=== PATIENT | female | born 1975 | race Caucasian/White ===

== ENCOUNTER → 2023-10-26 10:13 | Outpatient (REF) | payer BC, SELFPAY ==
[2023-10-26 13:40] LABS: % Basophils 0.6 % (0-2); % Eosinophils 7.6 % (0-6); % Immature Granulocytes 0.3 % (0-0.5); % Lymphocytes 15.4 % (20.5-51.1); % Monocytes 6.1 % (1.7-9.3); Absolute Eosinophils 0.5 10^3/uL (0-0.7); Absolute Lymphocytes 1.1 10^3/uL (1.2-3.4); Absolute Monocytes 0.4 10^3/uL (0.1-0.6); Absolute Neutrophils 4.9 10^3/uL (1.4-6.5); Hematocrit 38.2 % (37.0-47.0); Hemoglobin 11.5 g/dL (12.0-16.0); Mean Corp Hgb Conc. 30.1 g/dL (33.0-37.0); Mean Corpuscular Hgb 25.8 pg (27.0-31.0); Mean Corpuscular Volume 85.8 fL (81.0-99.0); Mean Platelet Volume 9.8 fL (7.4-10.4); Nucleated Red Blood Cells % 0 %; Platelet Count 295 10^3/uL (130-400); Red Blood Cell Count 4.45 10^6/uL (4.20-5.40); Red Cell Dist. Width 16.5 % (11.5-14.5); White Blood Cell Count 6.9 10^3/uL (4.8-10.8)
[2023-10-26 14:09] LABS: ALT (SGPT) 31 U/L (0-35); AST (SGOT) 33 U/L (14-36); Alkaline Phosphatase 107 U/L (38-126); Blood Urea Nitrogen 18 mg/dl (7-17); Calcium 9.8 mg/dl (8.4-10.2); Carbon Dioxide 25 mmol/L (22-30); Chloride 103 mmol/L (98-107); Glucose 65 mg/dl (70-99); HDL Cholesterol 33 mg/dl; LDL Cholesterol, Calculated 52 mg/dl; Potassium 4.3 mmol/L (3.5-5.1); Sodium 139 mmol/L (135-145); Total Bilirubin 0.6 mg/dl (0.2-1.3); Total Cholesterol 109 mg/dl (50-199); Total Protein 6.3 g/dl (6.3-8.2); Triglyceride 122 mg/dl (10-149); Very Low Density Lipoprotein 24 mg/dl (0-30); eGFR > 60.00
[2023-10-26 14:25] LABS: Free T4 1.16 ng/dl (0.78-2.19)
[2023-10-26 14:31] LABS: Glycohemoglobin (HgbA1c) 6.2 % (4.0-5.6)
[2023-10-26 14:39] LABS: TSH 1.54 uIU/ml (0.47-4.68)
== END ==
LOC: REG 10:13
PROVIDERS: ATTENDING PHYSICIAN Physician Assistant
DX: E11.69 Type 2 diabetes mellitus with other specified complication (principal); E03.9 Hypothyroidism, unspecified
CPT/HCPCS: 36415; 80053; 80061; 83036; 84439; 84443; 85025

== ENCOUNTER → 2023-11-28 14:11 | Outpatient (REF) | payer MEDICARE, OTHER, SELFPAY | LOC: WDC 14:11 | PROVIDERS: ATTENDING PHYSICIAN Physician Assistant Medical | DX: Z12.31 Encounter for screening mammogram for malignant neoplasm of breast (principal) | CPT/HCPCS: 77063; 77067 ==

== ENCOUNTER → 2023-12-06 15:02 | Outpatient (REF) | payer MEDICARE, OTHER, SELFPAY ==
[2023-12-06 15:42] LABS: Urine Albumin 1+ (Neg - Trace); Urine Bilirubin Negative (Negative); Urine Character Very Cloudy (Clear); Urine Color Yellow; Urine Glucose Negative (Negative); Urine Ketone Negative (Negative); Urine Leukocyte 2+ (Negative); Urine Nitrite Positive (Negative); Urine Occult Blood 3+ (Negative); Urine Urobilinogen Negative (Neg - 1+)
[2023-12-06 16:13] LABS: Urine Squamous Cell 0-2 /LPF (Few)
[2023-12-06 16:15] LABS: Urine Bacteria Few (Negative); Urine Calcium Oxalate Crystals Present; Urine White Cell 90-100 /HPF (0-5)
== END ==
LOC: REG 15:02
PROVIDERS: ATTENDING PHYSICIAN Physician Assistant Medical
DX: N30.90 Cystitis, unspecified without hematuria (principal)
CPT/HCPCS: 81003; 81015; 87077; 87086; 87186

== ENCOUNTER → 2024-03-08 10:49 | Outpatient (REF) | payer MEDICARE, OTHER, SELFPAY ==
[2024-03-08 11:29] LABS: % Basophils 0.6 % (0-2); % Eosinophils 3.7 % (0-6); % Immature Granulocytes 0.3 % (0-0.5); % Lymphocytes 17.1 % (20.5-51.1); % Monocytes 5.7 % (1.7-9.3); % Neutrophils 72.6 % (42.2-75.2); Absolute Basophils 0.1 10^3/uL (0-0.2); Absolute Eosinophils 0.3 10^3/uL (0-0.7); Absolute Lymphocytes 1.3 10^3/uL (1.2-3.4); Absolute Monocytes 0.5 10^3/uL (0.1-0.6); Absolute Neutrophils 5.7 10^3/uL (1.4-6.5); Hematocrit 36.5 % (37.0-47.0); Hemoglobin 11.6 g/dL (12.0-16.0); Mean Corp Hgb Conc. 31.8 g/dL (33.0-37.0); Mean Corpuscular Hgb 26.7 pg (27.0-31.0); Mean Corpuscular Volume 84.1 fL (81.0-99.0); Mean Platelet Volume 9.3 fL (7.4-10.4); Nucleated Red Blood Cells % 0 %; Platelet Count 287 10^3/uL (130-400); Red Blood Cell Count 4.34 10^6/uL (4.20-5.40); Red Cell Dist. Width 15.2 % (11.5-14.5); White Blood Cell Count 7.8 10^3/uL (4.8-10.8)
[2024-03-08 12:04] LABS: ALT (SGPT) 20 U/L (0-35); AST (SGOT) 25 U/L (14-36); Albumin 3.9 g/dl (3.5-5.0); Alkaline Phosphatase 116 U/L (38-126); Blood Urea Nitrogen 18 mg/dl (7-17); Calcium 9.5 mg/dl (8.4-10.2); Carbon Dioxide 20 mmol/L (22-30); Chloride 107 mmol/L (98-107); Glucose 111 mg/dl (70-99); Potassium 4.2 mmol/L (3.5-5.1); Sodium 139 mmol/L (135-145); Total Bilirubin 0.4 mg/dl (0.2-1.3); Total Protein 6.3 g/dl (6.3-8.2); eGFR > 60.00
[2024-03-08 12:22] LABS: Free T4 0.93 ng/dl (0.78-2.19)
[2024-03-08 12:26] LABS: Protein/creatinine Ratio 0.4; Urine Protein 26 mg/dl
[2024-03-08 12:28] LABS: Microalbumin/creatinine Ratio 113.5 mg/g
[2024-03-08 12:35] LABS: TSH 3.31 uIU/ml (0.47-4.68)
[2024-03-08 13:15] LABS: Glycohemoglobin (HgbA1c) 6.3 % (4.0-5.6)
== END ==
LOC: REG 10:49
PROVIDERS: ATTENDING PHYSICIAN Physician Assistant; FAMILY PHYSICIAN Physician Assistant Medical
DX: E11.69 Type 2 diabetes mellitus with other specified complication (principal); E03.9 Hypothyroidism, unspecified; R80.9 Proteinuria, unspecified
CPT/HCPCS: 36415; 80053; 82043; 82570; 83036; 84156; 84439; 84443; 85025

== ENCOUNTER → 2024-07-20 11:25 | Outpatient (REF) | payer MEDICARE, OTHER, SELFPAY ==
[2024-07-20 12:08] LABS: % Basophils 0.6 % (0-2); % Eosinophils 3.2 % (0-6); % Immature Granulocytes 0.4 % (0-0.5); % Lymphocytes 15.5 % (20.5-51.1); % Monocytes 4.6 % (1.7-9.3); % Neutrophils 75.7 % (42.2-75.2); Absolute Basophils 0.1 10^3/uL (0-0.2); Absolute Eosinophils 0.3 10^3/uL (0-0.7); Absolute Lymphocytes 1.2 10^3/uL (1.2-3.4); Absolute Monocytes 0.4 10^3/uL (0.1-0.6); Hematocrit 38.4 % (37.0-47.0); Hemoglobin 11.8 g/dL (12.0-16.0); Mean Corp Hgb Conc. 30.7 g/dL (33.0-37.0); Mean Corpuscular Hgb 24.6 pg (27.0-31.0); Mean Platelet Volume 9.1 fL (7.4-10.4); Nucleated Red Blood Cells % 0 %; Platelet Count 374 10^3/uL (130-400); Red Cell Dist. Width 17.2 % (11.5-14.5); White Blood Cell Count 7.9 10^3/uL (4.8-10.8)
[2024-07-20 12:41] LABS: Glycohemoglobin (HgbA1c) 6.4 % (4.0-5.6)
[2024-07-20 13:44] LABS: Protein/creatinine Ratio 0.8; Urine Protein 112 mg/dl
[2024-07-20 14:17] LABS: Free T4 0.71 ng/dl (0.78-2.19)
[2024-07-20 14:36] LABS: Microalbumin, Random Urine 34.4 mg/dl (0.6-1.7); Microalbumin/creatinine Ratio 237.7 mg/g
[2024-07-20 16:40] LABS: ALT (SGPT) 19 U/L (0-35); AST (SGOT) 22 U/L (14-36); Albumin 4.4 g/dl (3.5-5.0); Alkaline Phosphatase 119 U/L (38-126); Blood Urea Nitrogen 14 mg/dl (7-17); Calcium 9.7 mg/dl (8.4-10.2); Carbon Dioxide 15 mmol/L (22-30); Chloride 106 mmol/L (98-107); Glucose 164 mg/dl (70-99); HDL Cholesterol 41 mg/dl; LDL Cholesterol, Calculated 50 mg/dl; Potassium 3.8 mmol/L (3.5-5.1); Sodium 138 mmol/L (135-145); Total Bilirubin 0.5 mg/dl (0.2-1.3); Total Cholesterol 120 mg/dl (50-199); Total Protein 6.9 g/dl (6.3-8.2); Triglyceride 149 mg/dl (10-149); Very Low Density Lipoprotein 29 mg/dl (0-30); eGFR 50.72
== END ==
LOC: REG 11:25
PROVIDERS: ATTENDING PHYSICIAN Physician Assistant; FAMILY PHYSICIAN Physician Assistant Medical
DX: E11.69 Type 2 diabetes mellitus with other specified complication (principal); E03.9 Hypothyroidism, unspecified; R80.9 Proteinuria, unspecified
CPT/HCPCS: 36415; 80053; 80061; 82043; 82570; 83036; 84156; 84439; 84443; 85025

== ENCOUNTER → 2024-09-27 12:57 | Outpatient (REF) | payer MEDICARE, OTHER, SELFPAY ==
[2024-09-27 15:03] LABS: Free T4 1.56 ng/dl (0.78-2.19)
[2024-09-27 15:17] LABS: TSH 0.45 uIU/ml (0.47-4.68)
== END ==
LOC: REG 12:57
PROVIDERS: ATTENDING PHYSICIAN Physician Assistant; FAMILY PHYSICIAN Physician Assistant Medical
DX: E03.9 Hypothyroidism, unspecified (principal)
CPT/HCPCS: 36415; 84439; 84443

== ENCOUNTER → 2024-11-07 10:28 | Outpatient (REF) | payer MEDICARE, OTHER, SELFPAY ==
[2024-11-07 11:06] LABS: % Basophils 0.6 % (0-2); % Eosinophils 4.5 % (0-6); % Immature Granulocytes 0.3 % (0-0.5); % Monocytes 6.2 % (1.7-9.3); % Neutrophils 74.4 % (42.2-75.2); Absolute Basophils 0.1 10^3/uL (0-0.2); Absolute Eosinophils 0.4 10^3/uL (0-0.7); Absolute Lymphocytes 1.1 10^3/uL (1.2-3.4); Absolute Monocytes 0.5 10^3/uL (0.1-0.6); Absolute Neutrophils 5.9 10^3/uL (1.4-6.5); Hematocrit 36.8 % (37.0-47.0); Hemoglobin 11.4 g/dL (12.0-16.0); Mean Corpuscular Hgb 25.2 pg (27.0-31.0); Mean Corpuscular Volume 81.2 fL (81.0-99.0); Nucleated Red Blood Cells % 0 %; Platelet Count 303 10^3/uL (130-400); Red Blood Cell Count 4.53 10^6/uL (4.20-5.40); White Blood Cell Count 7.9 10^3/uL (4.8-10.8)
[2024-11-07 12:01] LABS: ALT (SGPT) 21 U/L (0-35); AST (SGOT) 24 U/L (14-36); Albumin 3.9 g/dl (3.5-5.0); Alkaline Phosphatase 112 U/L (38-126); Blood Urea Nitrogen 16 mg/dl (7-17); Calcium 9.2 mg/dl (8.4-10.2); Carbon Dioxide 22 mmol/L (22-30); Chloride 107 mmol/L (98-107); Glucose 124 mg/dl (70-99); HDL Cholesterol 41 mg/dl; LDL Cholesterol, Calculated 81 mg/dl; Potassium 4.3 mmol/L (3.5-5.1); Sodium 139 mmol/L (135-145); Total Bilirubin 0.5 mg/dl (0.2-1.3); Total Cholesterol 139 mg/dl (50-199); Total Protein 6.3 g/dl (6.3-8.2); Triglyceride 88 mg/dl (10-149); Very Low Density Lipoprotein 17 mg/dl (0-30); eGFR > 60.00
[2024-11-07 12:10] LABS: Free T4 0.92 ng/dl (0.78-2.19)
[2024-11-07 12:24] LABS: TSH 5.17 uIU/ml (0.47-4.68)
[2024-11-07 12:26] LABS: Glycohemoglobin (HgbA1c) 6.5 % (4.0-5.6)
== END ==
LOC: REG 10:28
PROVIDERS: ATTENDING PHYSICIAN Physician Assistant; FAMILY PHYSICIAN Physician Assistant Medical
DX: E11.69 Type 2 diabetes mellitus with other specified complication (principal); E03.9 Hypothyroidism, unspecified
CPT/HCPCS: 36415; 80053; 80061; 83036; 84439; 84443; 85025

== ENCOUNTER → 2025-02-05 10:17 | Outpatient (REF) | payer MEDICARE, OTHER, SELFPAY ==
[2025-02-05 11:18] LABS: Hematocrit 37.3 % (37.0-47.0); Hemoglobin 11.2 g/dL (12.0-16.0); Mean Corp Hgb Conc. 30.0 g/dL (33.0-37.0); Mean Corpuscular Volume 81.6 fL (81.0-99.0); Nucleated Red Blood Cells % 0 %; Platelet Count 307 10^3/uL (130-400); Red Cell Dist. Width 16.4 % (11.5-14.5)
[2025-02-05 12:00] LABS: ALT (SGPT) 22 U/L (0-35); AST (SGOT) 24 U/L (14-36); Albumin 4.0 g/dl (3.5-5.0); Alkaline Phosphatase 108 U/L (38-126); Blood Urea Nitrogen 17 mg/dl (7-17); Calcium 9.5 mg/dl (8.4-10.2); Carbon Dioxide 24 mmol/L (22-30); Chloride 105 mmol/L (98-107); Glucose 128 mg/dl (70-99); HDL Cholesterol 38 mg/dl; LDL Cholesterol, Calculated 65 mg/dl; Potassium 4.5 mmol/L (3.5-5.1); Sodium 139 mmol/L (135-145); Total Protein 6.4 g/dl (6.3-8.2); Very Low Density Lipoprotein 23 mg/dl (0-30); eGFR > 60.00
[2025-02-05 12:02] LABS: Glycohemoglobin (HgbA1c) 6.5 % (4.0-5.6)
[2025-02-05 12:27] LABS: TSH 0.89 uIU/ml (0.47-4.68)
== END ==
LOC: REG 10:17
PROVIDERS: ATTENDING PHYSICIAN Physician Assistant
DX: E11.69 Type 2 diabetes mellitus with other specified complication (principal); E03.9 Hypothyroidism, unspecified
CPT/HCPCS: 36415; 80053; 80061; 83036; 84439; 84443; 85025

== ENCOUNTER → 2025-04-10 12:37 | Outpatient (REF) | payer MEDICARE, OTHER, SELFPAY | LOC: HWRCS 12:37 | PROVIDERS: ATTENDING PHYSICIAN Physician Assistant Medical | DX: R06.00 Dyspnea, unspecified (principal); E11.65 Type 2 diabetes mellitus with hyperglycemia; E78.2 Mixed hyperlipidemia; I10 Essential (primary) hypertension; R94.31 Abnormal electrocardiogram [ECG] [EKG] | CPT/HCPCS: 93306 ==

== ENCOUNTER 2025-04-12 19:48 | Inpatient (IN) | payer MEDICARE, OTHER, SELFPAY ==
[2025-04-12] VITALS (8 sets, daily range): BP systolic 97–147; BP diastolic 42–68; BMI 50.9; BMI 50.4
[2025-04-12 12:46] LABS: Hematocrit 25.2 % (37.0-47.0); Hemoglobin 7.6 g/dL (12.0-16.0); Mean Corp Hgb Conc. 30.2 g/dL (33.0-37.0); Mean Corpuscular Volume 76.6 fL (81.0-99.0); Nucleated Red Blood Cells % 0 %; Red Cell Dist. Width 17.0 % (11.5-14.5)
[2025-04-12 12:48] LABS: ALT (SGPT) 16 U/L (0-35); AST (SGOT) 25 U/L (14-36); Albumin 3.7 g/dl (3.5-5.0); Alkaline Phosphatase 94 U/L (38-126); Blood Urea Nitrogen 16 mg/dl (7-17); Calcium 8.8 mg/dl (8.4-10.2); Carbon Dioxide 15 mmol/L (22-30); Chloride 110 mmol/L (98-107); Glucose 183 mg/dl (70-99); Potassium 4.2 mmol/L (3.5-5.1); Sodium 136 mmol/L (135-145); Total Protein 6.2 g/dl (6.3-8.2); eGFR > 60.00
--- NOTE | 2025-04-12 16:01 | ED.GENMED ---
History of Present Illness
<Vickie Saleem, APPLICATION PROJECT LEADER - Last Filed: 04/12/25 19:35>
General
Chief Complaint: Abnormal Lab Value
Source: patient
Exam Limitations: none
Time Seen by Provider: 04/12/25 15:41
Nursing documentation reviewed up to this point in time: agreed with
History of Present Illness
History of Present Illness:
49-year-old female with history of morbid obesity, anxiety, bipolar disorder, cholecystectomy, D&C for hyperplasia in 2004, hypothyroid, IDDM, asthma, presents for abnormal vaginal bleeding. She states she was started on control medication 3
weeks ago for 'binge eating and mood disorder.' Her periods have been irregular historically and states her LMP was 'a couple months ago' and she is on control to 'help me through menopause.'
She started with vaginal bleeding and clots 10 days ago, has been using 3-4 pads a day. Has used one pad so far today. Denies abdominal pain/cramping. Has felt 'a little short of breath.' Denies CP. Denies lightheadedness. No change in color of
stools. Denies UTI symptoms.
Past History
<Vickie Saleme, APPLICATION PROJECT LEADER - Last Filed: 04/12/25 19:35>
Past History
ED Past Medical History: Asthma, NIDDM, Hypothyroidism and Psychiatric (bipolar disorder with depression and suicide attempts.)
ED Past Surgical History: Cholecystectomy and Orthopedic (bilateral knee replacement, Bilateral Carpal tunnel)
Patient has exhibited threatening behavior?: No
Social History
Tobacco: Non-smoker
Alcohol: None
Drug: None
Personal: Single
Living: alone
Employment: Disabled
Review of Systems
<Vickie Saleem, APPLICATION PROJECT LEADER - Last Filed: 04/12/25 19:35>
Review of Systems
Allergies reviewed?: Yes
All Other Systems: ROS reviewed and negative except as documented in HPI and ROS
Constitutional: Denies fever
Respiratory: Denies trouble breathing
Cardiac: Denies chest pain
ABD/GI: Denies abdominal pain, nausea, vomiting, diarrhea or anorexia
: Denies dysuria
Musculoskeletal: Reports no symptoms
Skin: Reports no symptoms
Neurological: Denies dizzy, headache or weakness
Phy Exam
<Vickie Saleem, APPLICATION PROJECT LEADER - Last Filed: 04/12/25 19:35>
Physical Exam
Physical Exam:
GENERAL: No acute distress. A&Ox3.
CONSTITUTIONAL: Afebrile.
EYES: clear, conjunctivae normal
ENMT: moist mucus membranes, Pharynx nl
RESPIRATORY: Regular respirations, nonlabored, lungs clear.
CARDIOVASCULAR: Regular rate and rhythm, no murmurs, no rubs.
GI: Soft, morbidly obese, Nontender, normal BS
:
MUSCULOSKELETAL: Moves with ease. Well perfused.
SKIN: Warm, dry, pink
PSYCH: Normal mood and affect. Well kept, interactive and appropriate
NEUROLOGIC: Awake, alert and oriented. No focal neurological deficits
Course
<Vickie Saleem, APPLICATION PROJECT LEADER - Last Filed: 04/12/25 19:35>
Orders/Labs/Results
Orders:
Orders
04/12/25 12:21
Type And Crossmatch [Type+Screen] Urgent
Complete Blood Count/With Diff Urgent
Comprehensive Metabolic Panel Urgent
04/12/25 16:03
US Pelvis W Transvag Combined Urgent
Comment:
Reason For Exam: Abnormal vaginal bleeding with clots
04/12/25 16:21
PTT Urgent
04/12/25 16:25
Test Result ONCE
04/12/25 16:26
HCG, Serum Qualitative Screen Stat
04/12/25 18:45
* Blood Bank Products Urgent
Blood Bank Products: *Packed RBC Leuko(PRBC's)
Quantity: 1
Transfuse Today: Yes
Reason: Bleeding
IV Insert/Care/Rem.- Treatment PRN
04/12/25 18:58
Admit/Transfer Patient As Directed
Co-Sign Provider:
Level of Care: Inpatient admission
Assign to:: Medical/Surgical
Physician / Group: aidee romo
Diagnosis: fundal firbroid
Reason for Hospitalization: fundal fibroid
Expected length of stay greater than two midnights?: Yes
ELOS- Estimated Length of Stay in days: 3
I certify the patient meets the requirements for IP care: Yes
PRN Pain Medication Management As Directed
May give lesser potent ordered pain med per pt: Yes
preference::
Protocol:: Medication orders for pain may be administered in a
manner that supports deferring to patient preference
when the pt is:
- Requesting an ordered lesser potent pain medication.
Least to most potent pain medications are defined
as: acetaminophen < NSAID < tramadol < opioids
(morphine, oxycodone, hydromorphone).
- Requesting a lesser dose of the same medication IF
ORDERED.
- Requesting a less intrusive route of administration
if both routes are prescribed by the provider (PO <
IV).
04/12/25 19:00
Code Status As Directed
Resuscitation Status: Full Code
Abnormal Lab Results
04/12/25
12:21
RBC 3.29 L 10^6/uL
(4.20-5.40)
Hgb 7.6 L g/dL
(12.0-16.0)
Hct 25.2 L %
(37.0-47.0)
MCV 76.6 L fL
(81.0-99.0)
MCH 23.1 L pg
(27.0-31.0)
MCHC 30.2 L g/dL
(33.0-37.0)
RDW 17.0 H %
(11.5-14.5)
Absolute Lymphs (auto) 1.1 L 10^3/uL
(1.2-3.4)
Lymphocytes % 16.5 L %
(20.5-51.1)
Chloride 110 H mmol/L
(98-107)
Carbon Dioxide 15 L mmol/L
(22-30)
Creatinine 1.1 H mg/dL
(0.6-1.0)
Glucose 183 H mg/dl
(70-99)
Total Protein 6.2 L g/dl
(6.3-8.2)
Crossmatch IS Only See Detail
04/12/25 12:21
04/12/25 12:21
Vital Signs
Initial and Last Documented VS:
Initial Vital Signs
Temp Pulse Resp BP Pulse Ox
98.0 F 71 18 135/56 99
04/12/25 12:11 04/12/25 12:11 04/12/25 12:11 04/12/25 12:11 04/12/25 12:11
Last Documented Vital Signs
Temp Pulse Resp BP Pulse Ox
98.0 F 61 13 134/52 100
04/12/25 16:03 04/12/25 18:15 04/12/25 18:15 04/12/25 17:00 04/12/25 18:15
<Naima Adair MD - Last Filed: 04/12/25 19:33>
Orders/Labs/Results
Orders:
Orders
04/12/25 12:21
Type And Crossmatch [Type+Screen] Urgent
Complete Blood Count/With Diff Urgent
Comprehensive Metabolic Panel Urgent
04/12/25 16:03
US Pelvis W Transvag Combined Urgent
Comment:
Reason For Exam: Abnormal vaginal bleeding with clots
04/12/25 16:21
PTT Urgent
04/12/25 16:25
Test Result ONCE
04/12/25 16:26
HCG, Serum Qualitative Screen Stat
04/12/25 18:45
* Blood Bank Products Urgent
Blood Bank Products: *Packed RBC Leuko(PRBC's)
Quantity: 1
Transfuse Today: Yes
Reason: Bleeding
IV Insert/Care/Rem.- Treatment PRN
04/12/25 18:58
Admit/Transfer Patient As Directed
Co-Sign Provider:
Level of Care: Inpatient admission
Assign to:: Medical/Surgical
Physician / Group: aidee romo
Diagnosis: fundal firbroid
Reason for Hospitalization: fundal fibroid
Expected length of stay greater than two midnights?: Yes
ELOS- Estimated Length of Stay in days: 3
I certify the patient meets the requirements for IP care: Yes
PRN Pain Medication Management As Directed
May give lesser potent ordered pain med per pt: Yes
preference::
Protocol:: Medication orders for pain may be administered in a
manner that supports deferring to patient preference
when the pt is:
- Requesting an ordered lesser potent pain medication.
Least to most potent pain medications are defined
as: acetaminophen < NSAID < tramadol < opioids
(morphine, oxycodone, hydromorphone).
- Requesting a lesser dose of the same medication IF
ORDERED.
- Requesting a less intrusive route of administration
if both routes are prescribed by the provider (PO <
IV).
04/12/25 19:00
Code Status As Directed
Resuscitation Status: Full Code
Abnormal Lab Results
04/12/25
12:21
RBC 3.29 L 10^6/uL
(4.20-5.40)
Hgb 7.6 L g/dL
(12.0-16.0)
Hct 25.2 L %
(37.0-47.0)
MCV 76.6 L fL
(81.0-99.0)
MCH 23.1 L pg
(27.0-31.0)
MCHC 30.2 L g/dL
(33.0-37.0)
RDW 17.0 H %
(11.5-14.5)
Absolute Lymphs (auto) 1.1 L 10^3/uL
(1.2-3.4)
Lymphocytes % 16.5 L %
(20.5-51.1)
Chloride 110 H mmol/L
(98-107)
Carbon Dioxide 15 L mmol/L
(22-30)
Creatinine 1.1 H mg/dL
(0.6-1.0)
Glucose 183 H mg/dl
(70-99)
Total Protein 6.2 L g/dl
(6.3-8.2)
Crossmatch IS Only See Detail
04/12/25 12:21
04/12/25 12:21
Vital Signs
Initial and Last Documented VS:
Initial Vital Signs
Temp Pulse Resp BP Pulse Ox
98.0 F 71 18 135/56 99
04/12/25 12:11 04/12/25 12:11 04/12/25 12:11 04/12/25 12:11 04/12/25 12:11
Last Documented Vital Signs
Temp Pulse Resp BP Pulse Ox
98.0 F 61 13 134/52 100
04/12/25 16:03 04/12/25 18:15 04/12/25 18:15 04/12/25 17:00 04/12/25 18:15
<Vickie V. Day, APPLICATION PROJECT LEADER - Last Filed: 04/12/25 19:35>
MDM/Problems Addressed
Differential Diagnosis Includes:
uterine fibroid
MDM/Problems Addressed:
49-year-old female with history of morbid obesity, anxiety, bipolar disorder, cholecystectomy, D&C for hyperplasia in 2004, hypothyroid, IDDM, asthma, presents for abnormal vaginal bleeding. She states she was started on control medication 3
weeks ago for 'binge eating and mood disorder.' Her periods have been irregular historically and states her LMP was 'a couple months ago' and she is on control to 'help me through menopause.'
She started with vaginal bleeding and clots 10 days ago, has been using 3-4 pads a day. Has used one pad so far today. Denies abdominal pain/cramping. Has felt 'a little short of breath.' Denies CP. Denies lightheadedness. No change in color of
stools. Denies UTI symptoms.
CBC: Hemoglobin 7.6 indices indicating a chronic element but her last hemoglobin on 02/05/2025 was 11.2
CMP: Bicarb 15 (Metformin?) Otherwise unremarkable
6:30 p.m.
Pt has used one pad since arrival.
Plan: Admit: Acute blood loss anemia, 1 unit packed red blood cells ordered
Hospitalist and INTERNET MARKETING ANALYST notified
Stable.
<Vickie Saleem, APPLICATION PROJECT LEADER - Last Filed: 04/12/25 19:35>
*Pulse Oximetry
SaO2: 99
Oxygen Mode of Delivery: Room air
Patient hypoxic: no
*Critical Care Note
Total Time (30-74mins, 75-104mins- exclusive of procedures): Not Applicable
ED Attending Note
<Vickie Saleem, APPLICATION PROJECT LEADER - Last Filed: 04/12/25 19:35>
-
Portions of this chart may have been created with voice recognition software.� Occasional wrong word or��sound alike� substitutions may have occurred due to the inherent limitations of voice recognition software.
<Naima Adair MD - Last Filed: 04/12/25 19:33>
ED Attending Note
Patient seen and examined by attending physician: Yes
I performed the substantive portion of visit, reviewed & personally made and approve the management plan that is documented in note by myself or ELLIOT.: Yes
ED Attending Note:
Patient appears well and stable. She is breathing comfortably. Abdomen is soft and nontender. Patient be admitted for symptomatic blood loss anemia.
Discharge Plan
Departure
Patient Disposition: Admit
Date of Disposition: 04/12/25
Time of Disposition: 18:44
Admit to: Med/Surg
Presentation/result/management discussed w/ accepting MD/DO: Hospitalist
Condition: Fair
Discharge Problem:
Acute blood loss anemia, Abnormal vaginal bleeding
Prescriptions:
No Action
lurasidone [Latuda] 40 MG tablet
40 mg PO HS
atorvastatin 20 mg tablet
20 mg PO HS
metformin 500 mg tablet extended release 24 hr
1,000 mg PO Q12H
losartan 50 mg Tablet
50 mg PO DAILY
atorvastatin [Lipitor] 20 mg Tablet
20 mg PO DAILY
Theragen Tablet
1 tab PO DAILY
methenamine hippurate [Hiprex] 1 gram Tablet
1 g PO BID
levothyroxine [Synthroid] 150 mcg Tablet
150 mcg PO DAILY
escitalopram oxalate [Lexapro] 20 mg Tablet
30 mg PO DAILY
solifenacin [Vesicare] 10 mg Tablet
10 mg PO DAILY
lamotrigine [Lamictal XR] 100 mg Tablet Extended Release 24hr
100 mg PO QPM
mirabegron [Myrbetriq] 50 mg Tablet Extended Release 24 Hr
50 mg PO DAILY
Mounjaro 15 mg/0.5 mL Pen Injector
15 mg SC STATON
Referrals:
UNKNOWN - PT NOT,INTERVIEWE [Unknown Provider]
Interventions
Interventions:
*Risk Screen - Suicide Last Done: 04/12/25 16:36
*General Assessment Last Done: 04/12/25 12:11
*Neglect/Abuse Screening Last Done: 04/12/25 16:36
*ED- Fall Risk Assessment Last Done: 04/12/25 16:04
*ED COVID-19 Vaccine History Last Done: 04/12/25 16:04
Discharge Date and Time
Print Language: OMANI
[2025-04-12 16:53] LABS: APTT 24.5 Sec (23.4-35.0)
[2025-04-12 16:57] LABS: HCG, Serum Qualitative Screen Negative
--- NOTE | 2025-04-12 18:38 | HPS.HSE ---
Family Physician
-
Family Physician: Opal Hale
Chief Complaint
-
vaginal bleeding
History of Present Illness
49-year-old female with history of morbid obesity, anxiety, bipolar disorder, cholecystectomy, D&C for hyperplasia in 2004, hypothyroid, IDDM, asthma, presents for abnormal vaginal bleeding. She states she was started on control medication 3
weeks ago for 'binge eating and mood disorder.' Her periods have been irregular historically and states her LMP was 'a couple months ago' and she is on control to 'help me through menopause.'
She started with vaginal bleeding and clots 10 days ago, has been using 3-4 pads a day. Has used one pad so far today. Denies abdominal pain/cramping. she was lightheaded today morning. denied TONY, syncope.denied fever, chills,
cough,congestion.denied chest pain.denied n/v/d. denied dysuria or hematuria.
Upon arrival she was noted to hemoglobin 7.6. Transfusing with 1 unit of blood. Admitted for further management
Medical History
Past Medical History
Past Medical History: Reports Other
Additional Past Medical History:
Bipolar, hypothyroidism, depression, anemia, obesity, asthma, incontinence, type 2 diabetes
Past Surgical History: Reports Other
Additional Past Surgical History:
Cholecystectomy, left TKA, right TKA
Social History
Tobacco: Non-smoker
Alcohol: None
Drug: None
Personal: Single
Living: With Family
Family History
Family History: Not pertinent
Allergies / Home Medications
Allergies reflects when Allergies were last updated in [facility].
Home Medications with original date entered in [facility]
Allergy/Medication List:
Allergies
Allergy/AdvReac Type Severity Reaction Status Date / Time
piperacillin (From Zosyn) Allergy Severe Anaphylaxis Verified 04/12/25 12:11
tazobactam (From Zosyn) Allergy Severe Anaphylaxis Verified 04/12/25 12:11
dexamethasone (From Decadron) Allergy Intermediate 'gets mean' Verified 04/12/25 12:11
albuterol AdvReac 'doesn't Verified 04/12/25 12:11
sleep for
days'
azithromycin AdvReac Shortness Verified 04/12/25 12:11
of Breath
levofloxacin (From Levaquin) AdvReac Nausea Verified 04/12/25 12:11
prednisone (Prednisone) AdvReac hyperactivi Verified 04/12/25 12:11
ty
Sulfa (Sulfonamide AdvReac Nausea Verified 04/12/25 12:11
Antibiotics)
Home Medications
lurasidone 40 mg tablet (Latuda) 40 mg PO HS Mental Health/Anxiety 08/14/17
atorvastatin 20 mg tablet 20 mg PO HS High cholesterol 09/08/22
metformin 500 mg tablet,extended release 24 hr 1,000 mg PO Q12H Diabetes 09/08/22
atorvastatin 20 mg tablet (Lipitor) 20 mg PO DAILY 04/12/25
escitalopram oxalate 20 mg tablet (Lexapro) 30 mg PO DAILY 04/12/25
lamotrigine 100 mg tablet,extended release 24 hr (Lamictal XR) 100 mg PO QPM 04/12/25
levothyroxine 150 mcg tablet (Synthroid) 150 mcg PO DAILY 04/12/25
losartan 50 mg tablet 50 mg PO DAILY 04/12/25
methenamine hippurate 1 gram tablet 1 g PO BID 04/12/25
mirabegron 50 mg tablet,extended release 24 hr (Myrbetriq) 50 mg PO DAILY 04/12/25
solifenacin 10 mg tablet (Vesicare) 10 mg PO DAILY 04/12/25
therapeutic multivitamin 1 tab PO DAILY 04/12/25
tirzepatide 15 mg/0.5 mL subcutaneous pen injector (Mounjaro) 15 mg SC STATON 04/12/25
Review of Systems
-
Constitutional: Reports No Symptoms
EENT: Reports No Symptoms
Respiratory: Reports No Symptoms
Cardiac: Reports No Symptoms
Abdomen/GI: Reports No Symptoms
: Reports No Symptoms
Musculoskeletal: Reports No Symptoms
Skin: Reports No Symptoms
Neurological: Reports No Symptoms
Endocrine: Reports No Symptoms
Hematologic/Lymphatic: Reports No Symptoms
Psych: Reports No Symptoms
Physical Exam
Vital Signs
Vital Signs
Temp Pulse Resp BP Pulse Ox
98.0 F 61 13 134/52 100
04/12/25 16:03 04/12/25 18:15 04/12/25 18:15 04/12/25 17:00 04/12/25 18:15
Physical Exam
General: Well Developed, Well Nourished and No Apparent Distress
HEENT: NormoCephalic, Moist mucous membranes and Atraumatic
Respiratory: Clear
Cardiac: S1/S2 and Regular Rhythm; No Murmur or Rub
GI: Soft, Non Tender, Non Distended and Normal Bowel Sounds; No Organomegaly
Rectal: Deferred by Provider
Musculoskeletal: No Clubbing, No Cyanosis and No Edema
Skin: No Rash
Neuro: AO x 3 and Nonfocal/grossly intact
Psych: Calm
Laboratory Results
-
04/12/25 12:21
04/12/25 12:21
Laboratory Results
APTT 24.5 Sec (23.4-35.0) 04/12/25 16:21
Total Bilirubin 0.5 mg/dl (0.2-1.3) 04/12/25 12:21
AST 25 U/L (14-36) 04/12/25 12:21
ALT 16 U/L (0-35) 04/12/25 12:21
Alkaline Phosphatase 94 U/L (38-126) 04/12/25 12:21
Data Reviewed
-
Lab Data: Labs Reviewed by me
Impression/Plan
-
# Acute blood loss anemia secondary to vaginal bleeding secondary to fundal fibroid
- Hemoglobin 7.6, transfusing with 1 unit of blood
-MANAGER FIRE consulted
- Pelvic transvaginal ultrasound with impression of Small anterior subserosal fundal fibroid.No sonographic evidence for an acute process in the pelvis within the limitations of body habitus.
# CKD stage II/metabolic acidosis likely hypovolemic
-BMP in a.m.
#Morbid Obesity
- effects all aspects of care, due to excessive calorie intake
#Bipolar disorder
- on latuda, Lexapro, Lamictal
#Hyperlipidemia
- Atorvastatin continue
#Essential hypertension
- Losartan continue with hold parameter
#NIDDM
- Sliding scale
- Hold metformin
-CHO diet
# Overactive bladder
- Patient is on methenamine, vesicare, Myrbetriq
#Hypothyroidism
- Levothyroxine
DVT Ppx -SCD
# CODE STATUS
-Full code
--- NOTE | 2025-04-12 19:36 | W.PN.UPDATE ---
Update Note
Progress Note Update
This note serves as an addendum to the H&P by sharepoint specialist ELLIOT�
Esperanza GAVIOTA�
HPI�
49F HX morbid obesity, anxiety, bipolar disorder, cholecystectomy, D&C for hyperplasia in 2004, hypothyroid, IDDM, asthma seen at ER
- presents for abnormal vaginal bleeding
- she was started on control medication 3 weeks ago for 'binge eating and mood disorder.'
- irregular menses - HX LMP was 'a couple months ago' and she is on control to 'help me through menopause.'
- onset of vaginal bleeding and clots 10 days ago, has been using 3-4 pads a day.
- used one pad so far today.
ROS
- denies abdominal pain/cramping
- she was lightheaded today morning.
- denied TONY, syncope.denied fever, chills, cough,congestion.denied chest pain.denied n/v/d. denied dysuria or hematuria.
Upon arrival she was noted to hemoglobin 7.6.
Transfusing with 1 unit of blood.
PHX; see above
Relevant VS;
Temp Pulse Resp BP Pulse Ox
98.0 F 61 13 134/52 100
04/12/25 16:03 04/12/25 18:15 04/12/25 18:15 04/12/25 17:00 04/12/25 18:15
PE
Gen: NAD
HEENT: anicteric
Neck: supple
Lungs: CTA
Cor: RRR S2 S2
Abdomen:�Soft, Non Tender, Non Distended and Normal Bowel Sounds
FORGE PRESS OPERATOR: AAO3 , NFND
MS: no edema
Psych: calm
Relevant Data
04/12/25
12:21
RBC 3.29 L
Hgb 7.6 L
Hct 25.2 L
MCV 76.6 L
MCH 23.1 L
MCHC 30.2 L
RDW 17.0 H
Absolute Lymphs (auto) 1.1 L
Lymphocytes % 16.5 L
Chloride 110 H
Carbon Dioxide 15 L
Creatinine 1.1 H
Glucose 183 H
Total Protein 6.2 L
Crossmatch IS Only See Detail
TV Pelvis US
- Small anterior subserosal fundal fibroid.
- No sonographic evidence for an acute process in the pelvis within the limitations of body habitus.
ASSESSMENT & PLAN
Metrorrhagia due to Uterine fibroids
Associated with ACBLA due to vaginal bleeding secondary to fundal fibroid
- Hgb 7.6, transfusing with 1 unit of blood
- STUDENT DEVELOPMENT COORDINATOR consulted
HX CKD2
Metabolic acidosis likely hypovolemic
- f/u BMP
Morbid Obesity
- effects all aspects of care, due to excessive calorie intake
Bipolar disorder
- on Latuda, Lexapro, Lamictal
Hyperlipidemia
- Atorvastatin continue
Essential hypertension
- Losartan continue with hold parameter
NIDDM
- ISS
- Hold metformin
Overactive bladder
- Patient is on methenamine, vesicae, Myrbetriq
Hypothyroidism
- Levothyroxine
DVT Px: SCD
Code: Full code
IP MS
[2025-04-12 21:45] LABS: Glucose - Point of Care 148 mg/dl (70-99)
[2025-04-12] MEDS: LATUDA 40 MG PO (22:31)
[2025-04-12] MEDS: LAMICTAL 50 MG PO (22:31)
[2025-04-12] MEDS: LIPITOR 20 MG PO (22:32)
--- NOTE | 2025-04-12 22:36 | CON.MD ---
Consultation - Medical
-
pt is a 49 yo G0 with h/o abnormal uterine bleeding. H/o amenorrhea. Seen by Urogyn and placed on OCPs in Mar to stabilize mood and binge eating. Pt had bleeding for 2 weeks changing pads every 2h. Pt was seen by primary yesterday for shortness of
breath. Had blood work done and was asked to present to ER today. Mother present at initial exam in ER.ROS hgb 7.6 (In January 25) Blood tx begun. Per V Day one pad in past 6h.
Pgyn hx. no preg, no abn pap. no recent audit director care. reports pap done by urogyn, gets mammo regularly
PMHx: biopolar, overactive bladder, Diabetes on Insulin, HTn, Hypercholesterolemia, hypothyroidism
PSH bkr
all: Zoxyn, azithromycin, levofoxacin, sulfa
home meds: atorvastatin 20 mg qhs, excitalpram 3- mg daily, Lamictal 100 mg po qhs, levothyroxine 150 mcg, losartan 50 mg, lurasione 40 mg po qhs, Metformin 1000 mg po q 12h, methenamine 1 g po bid, myrbetriq 50 mg po qd, vesicare 10 mg daily,
Monjauro 15 mg sq
SH no cigs/etoh/drugs, lives on own, on disability
FH denies h/o breast, ov, ut cancer
ROS: BMI over 50, Rash on Left lower abdomen
Pleasant WF
vss afeb
lungs cl
cor rrr
abd obese with pannus. erythematous excoriated rash over LLQ
vulva bus Labia patulous
vag small amount blood in vault
cvx no lesions, suboptimal view given speculum exam on hospital bed and bedpan
ut not enlarged exam limited due to body habitus
no adnexal masses appreciated
pelvic US: antegerte uterus slick 10.6 x 5.1 x 7.0 cm. small left anterior subserosal fibroid largest dim 1.4 cm. endometrium echogenic slick up to 4 mm
ov appear nml. no signicat free fluid in the pelvis
Imp
sx anemia due to menorrhagia
h/o abnormal uterine bleeding
small subserosal fibroid
elev BMI
Plan
blood tx
check labs in am
review mgmt of menorrhagia, perimenopausal, anovulatory bleeding due to body habitus in am
t/c cyclic progestin therapy, progestin IUD
Time spent with pt 30 min
Consultation
-
Date/Time Consultation Requested: 12 Apr 2025
Date/Time Consultation Performed: 12 Apr 2025
Requesting Provider: Cat
Performing Provider: Bonnie
Reason for Consultation: Symptomatic Anemia, Menorrhagia, Abnormal uterine bleeding
[2025-04-13] MEDS: SYNTHROID 150 MCG PO (05:33)
[2025-04-13 07:29] VITALS: BP 107/44
[2025-04-13 08:11] LABS: Hematocrit 24.8 % (37.0-47.0); Hemoglobin 8.0 g/dL (12.0-16.0); Mean Corp Hgb Conc. 32.3 g/dL (33.0-37.0); Mean Corpuscular Volume 79.0 fL (81.0-99.0); Platelet Count 285 10^3/uL (130-400); Red Cell Dist. Width 16.6 % (11.5-14.5)
[2025-04-13 08:16] LABS: Glucose - Point of Care 151 mg/dl (70-99)
--- NOTE | 2025-04-13 08:24 | W.PN.HOSP.TC ---
Today's Communication/Plan
-
Bedrest for now
Another 1 unit of PRBCs today
Assessment / Plan
Assessment / Plan
Physical Exam
General: Well Developed, Well Nourished and No Apparent Distress
HEENT: Normocephalic, Moist mucous membranes
Respiratory: Clear to Auscultation Bilaterally
Cardiac: S1/S2 and Regular Rhythm
GI: Soft, Non Tender, Non Distended and Normal Bowel Sounds
Musculoskeletal: No Cyanosis and No Edema
Skin: Warm. Dry.
Neuro: AAO x 3 and Nonfocal/grossly intact
Psych: Calm
Assessment/Plan
49-year-old female with history of morbid obesity, anxiety, bipolar disorder, cholecystectomy, D&C for hyperplasia in 2004, hypothyroid, IDDM and asthma, presented for abnormal vaginal bleeding. She states she was started on control
medication 3 weeks, prior to presentation for 'binge eating and mood disorder.' Her periods have been irregular historically and she stated that her LMP was 'a couple months ago' and she is on control to 'help me through menopause.' She
started with vaginal bleeding and clots 10 days prior to presentation, had been using 3-4 pads a day. She reported lightheadedness. Upon arrival she was noted to hemoglobin 7.6. She started to get transfusions of packed red blood cells.
Symptomatic anemia due to menorrhagia
History of abnormal uterine bleeding/irregular menstrual periods
Small subserosal fibroid
History of D&C for hyperplasia in 2004
-Pelvic ultrasound with fibroid
-PRINT DEVELOPER consulted
-Received 1 unit of PRBC on 04/12/25 evening
-IV TXA ordered
-As per gynecology, start an oral 5 day regimen of the TXA starting this evening.
-Bedrest given lightheadedness symptoms and bleeding again on the morning of 04/13/25
-Ordered another 1 unit PRBC empirically on 04/13/25 given still having some lightheadedness, symptomatic anemia
Suspected MIKHAIL
Non-anion gap metabolic acidosis suspected from renal injury
-Continue blood transfusions
-Monitor Cr
Morbid Obesity
- effects all aspects of care, due to excessive calorie intake
Bipolar Disorder
- on latuda, Lexapro, Lamictal
Hyperlipidemia
- Atorvastatin continue
Essential Hypertension
- Losartan continue with hold parameter
NIDDM
- Sliding scale
- Hold metformin
-CHO diet
Overactive bladder
- Patient is on methenamine, vesicare, Myrbetriq
Hypothyroidism
- Levothyroxine
History of Asthma
DVT Prophylaxis: SCDs only
Code Status: Full code
Bleeding (associated with anemia and lightheadedness) needing red blood cells transfusion is a high-risk encounter.
Anticipated Discharge: Within 24 hours
Subjective/Interval History
-
Date of Service: April 13, 2025
Patient was seen and examined. This morning, she had significant amount of vaginal bleeding when standing up and also felt lightheaded, but this improved after lying back down in bed.
Objective Data
-
Labs:
Laboratory Results
04/13/25
07:50
WBC 6.4
Hgb 8.0 L
Hct 24.8 L
Plt Count 285
Sodium Pending
Potassium Pending
Chloride Pending
Carbon Dioxide Pending
BUN Pending
Creatinine Pending
Glucose Pending
Calcium Pending
Vital Signs:
Vital Signs
Temp Pulse Resp BP Pulse Ox
98.3 F 58 16 109/53 98
04/12/25 22:39 04/12/25 22:39 04/12/25 22:39 04/12/25 22:39 04/12/25 20:40
I&O
04/12/25 04/13/25 04/14/25
06:59 06:59 06:59
Intake Total 250 / 250
Balance 250 / 250
[2025-04-13] MEDS: DETROL LA 4 MG PO (08:29)
[2025-04-13] MEDS: HIPREX 1 GRAM PO ×2 (08:29→19:25)
[2025-04-13] MEDS: COZAAR 50 MG PO (08:29)
[2025-04-13] MEDS: LEXAPRO 30 MG PO (08:30)
[2025-04-13] MEDS: LAMICTAL 50 MG PO ×2 (08:31→19:24)
[2025-04-13] MEDS: NOVOLOG FLEXPEN-LOW RESISTANCE 1 UNITS SC (08:32)
[2025-04-13] MEDS: DESENEX/MITRAZOL/ZEASORB 1 APPLIC TOPICAL ×2 (08:32→19:23)
[2025-04-13 08:48] LABS: Blood Urea Nitrogen 16 mg/dl (7-17); Calcium 8.4 mg/dl (8.4-10.2); Carbon Dioxide 17 mmol/L (22-30); Chloride 111 mmol/L (98-107); Estimated Creatinine Clearance 93 ml/min; Glucose 133 mg/dl (70-99); Potassium 4.3 mmol/L (3.5-5.1); Sodium 136 mmol/L (135-145); eGFR > 60.00
--- NOTE | 2025-04-13 09:00 | PTCARENOTE ---
pt with large amt of bright red blood loss upon standing this morning. pt used the bathroom with standby assist, voided bloody urine. upon returning to bed pt with c/o lightheadedness. VSS. aware, POC ongoing.
--- NOTE | 2025-04-13 10:09 | CM ---
Reviewed the chart notes and spoke with the patient at the bedside. The patient resides alone in independent living apartment at [facility]. The patient reports no DME/VN/SNF in the past. The patient confirmed her pharmacy of choice is [facility]. CM continues to be available to patient/family and is monitoring medical plan for needs at discharge.
Plan: Discharge to home when medically stable. No anticipated needs identified at this time.
[2025-04-13] MEDS: TRANEXAMIC ACID 100 IV (10:23)
[2025-04-13 11:22] LABS: Glycohemoglobin (HgbA1c) 7.2 % (4.0-5.6)
[2025-04-13 12:08] LABS: Glucose - Point of Care 206 mg/dl (70-99)
[2025-04-13] MEDS: NOVOLOG FLEXPEN-LOW RESISTANCE 2 UNITS SC ×2 (13:04→18:25)
[2025-04-13 15:07] VITALS: BP 115/63
--- NOTE | 2025-04-13 16:27 | W.PN.OBG.DWH ---
Today's Communication / Plan
-
TXA therapy as ordered
Monitor bleeding
If patient remains hemodynamically stable overnight and bleeding is not excessive we can plan for d/c home tomorrow.
Assessment/Plan
-
49y/o HD#2 with Heavy Vaginal Bleeding
1. AUB- Started after starting OCP. She has since stopped
-IV TXA 1g ordered. Then ordered to start 1300mg PO TID x 5 days
-Continue to monitor bleeding and inform LOOM FIXER APPRENTICE if soaking through pads especially 1 or more pads/hr
-Bleeding seems to be related to the control as patient states she was NOT having an issue prior and US does not show abnormality to the endometrial stripe (4mm). However explained that if AUB persists then endometrial sampling would be
required. This can be done on an outpatient basis.
-Can discuss starting daily progestin therapy vs IUD as outpatient if needed or desired
2. Anemia
-related to blood loss
-s/p 1U PRBCs last night
-Hgb increased slightly from 7.6> 8.0
-patient still with symptoms of anemia (light headed) thus suggest she get another 1U PRBCs today
-repeat CBC in AM
3. Mgmt of her chronic medical conditions per Hospitalist team.
Subjective Data
-
patient states she had a heavy bleeding episode when she stood up this morning and still feels light headed. says her bleeding has improved since then. She admits that prior to start on control she would occasionally skip months on her period,
and when she did get her period it was not heavy. She denies pelvic pain. Tolerating PO intake.
Objective Data
-
Laboratory Results
04/13/25 07:50
04/13/25 07:50
Vital Signs
Temp Pulse Resp BP Pulse Ox
98.6 F 59 18 115/63 100
04/13/25 15:07 04/13/25 15:07 04/13/25 15:07 04/13/25 15:07 04/13/25 15:07
Gen: nad well appearing
Abd: soft, nt, obese
Pelvic: small amount of blood on her pad. NO clots seen. Pad is not soaked through.
[2025-04-13 16:56] LABS: Glucose - Point of Care 231 mg/dl (70-99)
[2025-04-13] MEDS: CYKLOKAPRON 1300 MG PO ×2 (17:21→21:19)
[2025-04-13 17:30] VITALS: BP 134/67
[2025-04-13 17:33] LABS: Albumin 3.3 g/dl (3.5-5.0)
[2025-04-13 17:46] VITALS: BP 127/69
[2025-04-13] MEDS: LIPITOR 20 MG PO (19:25)
[2025-04-13] MEDS: LATUDA 40 MG PO (19:25)
[2025-04-13 20:05] VITALS: BP 111/61
[2025-04-13 21:52] LABS: Glucose - Point of Care 194 mg/dl (70-99)
[2025-04-13 23:47] VITALS: BP 105/56
[2025-04-14] VITALS (7 sets, daily range): BP systolic 123–177; BP diastolic 45–82; PULSE 63–69; O2SAT 97
[2025-04-14 06:08] LABS: Hematocrit 25.7 % (37.0-47.0); Hemoglobin 7.9 g/dL (12.0-16.0); Mean Corp Hgb Conc. 30.7 g/dL (33.0-37.0); Mean Corpuscular Volume 79.6 fL (81.0-99.0); Platelet Count 253 10^3/uL (130-400); Red Cell Dist. Width 16.7 % (11.5-14.5)
[2025-04-14 06:35] LABS: Blood Urea Nitrogen 16 mg/dl (7-17); Calcium 8.7 mg/dl (8.4-10.2); Carbon Dioxide 19 mmol/L (22-30); Chloride 111 mmol/L (98-107); Estimated Creatinine Clearance 93 ml/min; Glucose 174 mg/dl (70-99); Potassium 4.2 mmol/L (3.5-5.1); Sodium 136 mmol/L (135-145); eGFR > 60.00
[2025-04-14] MEDS: SYNTHROID 150 MCG PO (06:36)
[2025-04-14 07:54] LABS: Glucose - Point of Care 173 mg/dl (70-99)
[2025-04-14] MEDS: COZAAR 50 MG PO (08:39)
[2025-04-14] MEDS: LAMICTAL 50 MG PO (08:40)
[2025-04-14] MEDS: CYKLOKAPRON 1300 MG PO ×2 (08:40→15:06)
[2025-04-14] MEDS: LEXAPRO 30 MG PO (08:41)
[2025-04-14] MEDS: HIPREX 1 GRAM PO (08:41)
[2025-04-14] MEDS: NOVOLOG FLEXPEN-LOW RESISTANCE 1 UNITS SC (08:42)
[2025-04-14] MEDS: DESENEX/MITRAZOL/ZEASORB 1 APPLIC TOPICAL (08:42)
[2025-04-14] MEDS: DETROL LA 4 MG PO (08:42)
--- NOTE | 2025-04-14 08:42 | W.PN.HOSP.TC ---
Today's Communication/Plan
-
Discharge today
Assessment / Plan
Assessment / Plan
Physical Exam
General: Well Developed, Well Nourished and No Apparent Distress
HEENT: Normocephalic, Moist mucous membranes
Respiratory: Clear to Auscultation Bilaterally
Cardiac: S1/S2 and Regular Rhythm
GI: Soft, Non Tender, Non Distended and Normal Bowel Sounds
Musculoskeletal: No Cyanosis and No Edema
Skin: Warm. Dry.
Neuro: AAO x 3 and Nonfocal/grossly intact
Psych: Calm
Assessment/Plan
49-year-old female with history of morbid obesity, anxiety, bipolar disorder, cholecystectomy, D&C for hyperplasia in 2004, hypothyroid, IDDM and asthma, presented for abnormal vaginal bleeding. She states she was started on control
medication 3 weeks, prior to presentation for 'binge eating and mood disorder.' Her periods have been irregular historically and she stated that her LMP was 'a couple months ago' and she is on control to 'help me through menopause.' She
started with vaginal bleeding and clots 10 days prior to presentation, had been using 3-4 pads a day. She reported lightheadedness. Upon arrival she was noted to hemoglobin 7.6. She started to get transfusions of packed red blood cells.
Symptomatic anemia due to menorrhagia
Iron Deficiency Anemia
History of abnormal uterine bleeding/irregular menstrual periods
Abnormal Uterine Bleeding -- started after starting oral contraceptive pills (now stopped)
Small subserosal fibroid
History of D&C for hyperplasia in 2004
-Pelvic ultrasound with fibroid
-TUMBLE TAILSTOCK TURRET LATHE OPERATOR consulted
-Received 1 unit of PRBC on 04/12/25 evening
-IV TXA ordered
-On discharge, complete TXA 1300mg PO TID x 5 days total (5 days combined inpatient and outpatient)
-As per gynecology, start an oral 5 day regimen of the TXA starting this evening.
-Bedrest given lightheadedness symptoms and bleeding again on the morning of 04/13/25
-Ordered another 1 unit PRBC empirically on 04/13/25 given still having some lightheadedness, symptomatic anemia
-Ferrous Sulfate 325 mg PO Q48H for 1 month; recheck iron studies outpatient and see if this patient needs to be continued outpatient
-Return to the ER if bleeding again
Suspected MIKHAIL
Non-anion gap metabolic acidosis suspected from renal injury which in turn is likely from hypoperfusion
-Continued blood transfusions
-Cr same but NAGMA acidosis improving -- outpatient PCP follow-up
Morbid Obesity
- effects all aspects of care, due to excessive calorie intake
Bipolar Disorder
- on latuda, Lexapro, Lamictal
Hyperlipidemia
- Atorvastatin continue
Essential Hypertension
- Losartan continue with hold parameter
NIDDM
- Sliding scale
- Hold metformin
-CHO diet
Overactive bladder
- Patient is on methenamine, vesicare, Myrbetriq
Hypothyroidism
- Levothyroxine
History of Asthma
DVT Prophylaxis: SCDs only
Code Status: Full code
More than 30 minutes spent in discharge including
Final examination of the patient
Summarizing hospital stay
Instructions for continuing care to all relevant caregivers
Preparation of discharge records, prescriptions, and referral forms
Total time spent (in minutes): 45
Anticipated Discharge: Today
Subjective/Interval History
-
Date of Service: April 14, 2025
Patient was seen and examined. Initially she did not feel great, but after another 1 unit of red blood cells, she felt much better and ready to go home.
Objective Data
-
Labs:
Laboratory Results
04/14/25
05:47
WBC 5.9
Hgb 7.9 L
Hct 25.7 L
Plt Count 253
Sodium 136
Potassium 4.2
Chloride 111 H
Carbon Dioxide 19 L
BUN 16
Creatinine 1.1 H
Glucose 174 H
Calcium 8.7
Vital Signs:
Vital Signs
Temp Pulse Resp BP Pulse Ox
97.6 F 58 18 128/45 97
04/14/25 07:45 04/14/25 07:45 04/14/25 07:45 04/14/25 07:45 04/14/25 07:45
I&O
04/13/25 04/14/25 04/15/25
06:59 06:59 06:59
Intake Total 250 / 250 850 / 850
Balance 250 / 250 850 / 850
--- NOTE | 2025-04-14 08:56 | W.PN.OBG.DWH ---
Today's Communication / Plan
-
3rd unit of PRBCs
If patient tolerates ambulation well today and bleeding remains minimal then will plan to be d/c today and f/u outpatient within 1-2 weeks.
Assessment/Plan
-
49y/o HD#3 with Heavy Vaginal Bleeding
1. AUB- Started after starting OCP. She has since stopped
-IV TXA 1g ordered. Then ordered to start 1300mg PO TID x 5 days
-Continue to monitor bleeding and inform CLAMP FORKLIFT OPERATOR if soaking through pads especially 1 or more pads/hr. Overnight her bleeding has significantly decreased with the TXA.
-Explained that if AUB persists then endometrial sampling would be required. This can be done on an outpatient basis, unless bleeding becomes heavy again while here.
-Can discuss starting daily progestin therapy vs IUD as outpatient if needed or desired
2. Anemia
-related to blood loss
-s/p 2U PRBCs since admission
-Hgb essentially unchanged 7.6> 8.0> 7.9
-Iron studies being ordered.
-she feels fatigue but other symptoms of anemia (lightheadedness) have resolved. Will give a 3rd unit of blood.
3. Mgmt of her chronic medical conditions per Hospitalist team.
Subjective Data
-
Patient feels okay, says she no longer feels light headed but does just feel tired. She has been mainly on bedrest. Has been OOB to the beside commode. Per nurse she has tolerated that well and no further episode of heavy vaginal bleeding. She is
tolerating a regular diet. No abdominal pain/cramping.
Objective Data
-
Laboratory Results
04/14/25 05:47
04/14/25 05:47
Vital Signs
Temp Pulse Resp BP Pulse Ox
97.6 F 58 18 128/45 97
04/14/25 07:45 04/14/25 08:39 04/14/25 07:45 04/14/25 08:39 04/14/25 07:45
Gen: nad well appearing, lying in bed. looks much better to me than yesterday
Abd: soft, nt, obese
Pelvic: deferred but looking at her pads there is a small amount of old blood present.
[2025-04-14 09:23] LABS: Iron 35 ug/dl (37-170)
[2025-04-14 09:32] LABS: Total Iron Binding Capacity 362 ug/dl (265-497)
[2025-04-14 12:09] LABS: Ferritin 13.2 ng/ml (6.24-137)
[2025-04-14 12:33] LABS: Glucose - Point of Care 258 mg/dl (70-99)
[2025-04-14] MEDS: NOVOLOG FLEXPEN-LOW RESISTANCE 3 UNITS SC (12:59)
[2025-04-14] MEDS: FERRLECIT 110 MG IV (13:01)
[2025-04-14 15:41] LABS: Hematocrit 28.0 % (37.0-47.0); Hemoglobin 8.8 g/dL (12.0-16.0)
--- NOTE | 2025-04-14 15:56 | CM ---
Reviewed the chart notes and spoke with the patient at the bedside. CM consult for VN received. Discussed VN agencies. [facility] selected. CM continues to be available to patient/family and is monitoring medical plan for needs at discharge.
Plan: Discharge to home with [facility]. [facility] accepted [facility].
[facility]
[2025-04-14 16:32] LABS: Glucose - Point of Care 238 mg/dl (70-99)
[2025-04-14] MEDS: NOVOLOG FLEXPEN-LOW RESISTANCE 2 UNITS SC (17:42)
--- NOTE | 2025-04-14 18:05 | PTCARENOTE ---
Assumed care for patient around 15:30. Pt has no complaints at this time. Assessment as documented. Pt to be discharged.
== END 2025-04-14 18:51 | disposition home health service (06) | DRG 760 ==
LOC: 4 EAST ACU 19:48
PROVIDERS: Emergency Medicine; Registered Nurse; ADMITTING PHYSICIAN Internal Medicine; ATTENDING PHYSICIAN Hospitalist; CONSULT PHYSICIAN Obstetrics & Gynecology; EMERGENCY PHYSICIAN Emergency Medicine; FAMILY PHYSICIAN Physician Assistant Medical
PROC: 30233N1 Transfusion of Nonautologous Red Blood Cells into Peripheral Vein, Percutaneous Approach (ICD-10-PCS; 2025-04-12)
DX: N92.1 Excessive and frequent menstruation with irregular cycle (principal); D62 Acute posthemorrhagic anemia; Z68.43 Body mass index [BMI] 50.0-59.9, adult; E87.20 Acidosis, unspecified; N17.9 Acute kidney failure, unspecified; D25.2 Subserosal leiomyoma of uterus; E66.01 Morbid (severe) obesity due to excess calories; F41.9 Anxiety disorder, unspecified; F31.9 Bipolar disorder, unspecified; E03.9 Hypothyroidism, unspecified; J45.909 Unspecified asthma, uncomplicated; F39 Unspecified mood [affective] disorder; R63.2 Polyphagia; I12.9 Hypertensive chronic kidney disease with stage 1 through stage 4 chronic kidney disease, or unspecified chronic kidney disease; N32.81 Overactive bladder; D50.9 Iron deficiency anemia, unspecified; N18.2 Chronic kidney disease, stage 2 (mild); E86.1 Hypovolemia; E78.00 Pure hypercholesterolemia, unspecified; E11.22 Type 2 diabetes mellitus with diabetic chronic kidney disease; Z60.2 Problems related to living alone; Z96.653 Presence of artificial knee joint, bilateral; Z79.84 Long term (current) use of oral hypoglycemic drugs; Z79.85 Long-term (current) use of injectable non-insulin antidiabetic drugs; Z79.890 Hormone replacement therapy; Z79.899 Other long term (current) drug therapy; Z90.49 Acquired absence of other specified parts of digestive tract; Z88.1 Allergy status to other antibiotic agents; Z88.0 Allergy status to penicillin; Z88.2 Allergy status to sulfonamides; Z88.8 Allergy status to other drugs, medicaments and biological substances
CPT/HCPCS: 36430; 76830; 76856; 80048; 80053; 82040; 82728; 82962; 83036; 83540; 83550; 84703; 85014; 85018; 85025; 85027; 85730; 86850; 86900; 86901; 86920; 93306; 97162; 97166; 99285; J2916; P9016

== ENCOUNTER → 2025-04-24 10:33 | Outpatient (REF) | payer MEDICARE, OTHER, SELFPAY ==
[2025-04-24 11:55] LABS: Hematocrit 33.3 % (37.0-47.0); Hemoglobin 10.0 g/dL (12.0-16.0); Mean Corp Hgb Conc. 30.0 g/dL (33.0-37.0); Mean Corpuscular Volume 82.8 fL (81.0-99.0); Nucleated Red Blood Cells % 0 %; Platelet Count 259 10^3/uL (130-400); Red Cell Dist. Width 17.9 % (11.5-14.5)
[2025-04-24 12:21] LABS: ALT (SGPT) 21 U/L (0-35); AST (SGOT) 22 U/L (14-36); Albumin 3.8 g/dl (3.5-5.0); Alkaline Phosphatase 130 U/L (38-126); Blood Urea Nitrogen 19 mg/dl (7-17); Calcium 9.2 mg/dl (8.4-10.2); Carbon Dioxide 22 mmol/L (22-30); Chloride 106 mmol/L (98-107); Glucose 220 mg/dl (70-99); Iron 43 ug/dl (37-170); Potassium 4.7 mmol/L (3.5-5.1); Sodium 136 mmol/L (135-145); Total Protein 6.2 g/dl (6.3-8.2); eGFR 55.49
[2025-04-24 12:31] LABS: Total Iron Binding Capacity 402 ug/dl (265-497)
[2025-04-24 12:54] LABS: Ferritin 24.6 ng/ml (6.24-137)
== END ==
LOC: REG 10:33
PROVIDERS: ATTENDING PHYSICIAN Physician Assistant Medical; REFERRING PHYSICIAN Physician Assistant
DX: D50.0 Iron deficiency anemia secondary to blood loss (chronic) (principal)
CPT/HCPCS: 36415; 80053; 82728; 83540; 83550; 85025

== ENCOUNTER 2025-07-09 09:54 | Outpatient (RCR) | payer MEDICARE, OTHER, SELFPAY | END 2025-07-09 23:59 | disposition home or self-care (01) | LOC: RPT 09:54 | PROVIDERS: ATTENDING PHYSICIAN Physician Assistant Medical | DX: M53.81 Other specified dorsopathies, occipito-atlanto-axial region (principal); R26.89 Other abnormalities of gait and mobility; Z73.6 Limitation of activities due to disability; R26.2 Difficulty in walking, not elsewhere classified; M62.81 Muscle weakness (generalized); R29.6 Repeated falls; Z96.653 Presence of artificial knee joint, bilateral | CPT/HCPCS: 97110; 97112; 97161 ==